=== PATIENT | male | born 1980 | race American Indian/Alaskan Native ===

== ENCOUNTER 2022-04-17 16:28 | Emergency (ER) | payer SELFPAY ==
[2022-04-17 18:02] LABS: Basophils % (Auto) 0.5 % (0.0-1.8); Eosinophils # (Auto) 0.1 K/mm3 (0.0-0.4); Eosinophils % (Auto) 0.8 % (0.0-4.3); Hematocrit 40.7 % (35.5-45.6); Lymphocytes # (Auto) 0.6 K/mm3 (1.2-5.4); Lymphocytes % (Auto) 8.9 % (13.4-35.0); Mean Corpuscular HGB Conc 32 % (32-34); Mean Corpuscular Volume 78 fl (84-94); Monocytes # (Auto) 0.6 K/mm3 (0.0-0.8); Monocytes % (Auto) 8.9 % (0.0-7.3); Platelet Count 157 K/mm3 (140-440); Red Blood Count 5.23 M/mm3 (3.65-5.03)
[2022-04-17 18:26] LABS: Alanine Aminotransferase 39 units/L (7-56); BUN/Creatinine Ratio 10; Blood Urea Nitrogen 12 mg/dL (9-20); Calcium 9.4 mg/dL (8.4-10.2); Hemolysis Index 32
[2022-04-18 04:16] LABS: Mucus,Urine FEW /HPF
[2022-04-18 04:40] LABS: Bilirubin,Urine NEG (Negative); Blood,Urine NEG (Negative); Color,Urine Straw (Yellow)
[2022-04-18 04:41] LABS: Urobilinogen,Urine < 2.0 mg/dL (<2.0)
[2022-04-18] MEDS ORDERED: SODIUM CHLORIDE 0.9% 1000 ML 1,000 ML ONE (07:51)
[2022-04-18] MEDS ORDERED: SODIUM CHLORIDE 0.9% 1000 ML 1,000 ML IV SCH ×3 (08:00→12:00)
[2022-04-18] MEDS ORDERED: SODIUM CHLORIDE 0.9% 100 ML IVPB IV SCH ×2 (08:00→12:00)
[2022-04-18] MEDS ORDERED: INSULIN REGULAR, HUMAN 100 UNITS/1 ML IV ONE (11:10)
--- NOTE | 2022-04-18 11:58 | Emergency Department Report ---
ED General Adult HPI - General Chief complaint: Hyperglycemia Stated complaint: HIGH SUGAR LEVEL PUI?: No Time Seen by Provider: 04/18/22 07:48 Source: patient Mode of arrival: Ambulatory Limitations: No Limitations - History of Present Illness Initial comments: This is a 41-year-old male with no medical history came in today with concerns of 2 to 3 weeks of extreme thirst and also polyuria. Patient also endorsed blurry vision which has since then resolved. patient denies any other symptoms. Patient denies fever chill night sweat dizziness lightheadedness headache tinnitus ear pain runny nose sore throat loss of taste loss of smell chest pain palpitation short breath cough abdominal pain nausea vomiting diarrhea consti pation joint pain muscle pain new rash and heat or cold intolerance. - Related Data Previous Rx's Medication Instructions Recorded Last Taken Type metFORMIN [Glucophage] 500 mg PO BID 30 Days #60 04/18/22 Unknown Rx Allergies Allergy/AdvReac Type Severity Reaction Status Date / Time No Known Allergies Allergy Verified 04/17/22 17:40 ED Review of Systems ROS: Stated complaint: HIGH SUGAR LEVEL Other details as noted in HPI Comment: All other systems reviewed and negative Constitutional: no symptoms reported Eyes: as per HPI ENT: as per HPI Respiratory: no symptoms reported Cardiovascular: as per HPI Endocrine: no symptoms reported, see HPI Gastrointestinal: as per HPI Genitourinary: as per HPI Musculoskeletal: as per HPI Skin: as per HPI Neurological: as per HPI Psychiatric: as per HPI Hematological/Lymphatic: as per HPI ED Past Medical Hx - Past Medical History Previous Medical History?: No - Surgical History Additional Surgical History: hemorrhoidectomy - Social History Smoking Status: Never Smoker - Medications Home Medications: Home Medications Medication Instructions Recorded Confirmed Last Taken Type metFORMIN [Glucophage] 500 mg PO BID 30 Days #60 04/18/22 Unknown Rx ED Physical Exam - General Limitations: No Limitations General appearance: alert, in no apparent distress - Head Head exam: Present: atraumatic, normocephalic, normal inspection - Eye Eye exam: Present: normal appearance, PERRL, EOMI Pupils: Present: normal accommodation - ENT ENT exam: Present: normal exam, normal orophraynx, mucous membranes dry - Neck Neck exam: Present: normal inspection, full ROM - Respiratory Respiratory exam: Present: normal lung sounds bilaterally - Cardiovascular Cardiovascular Exam: Present: regular rate, normal rhythm - GI/Abdominal GI/Abdominal exam: Present: soft - Extremities Exam Extremities exam: Present: normal inspection, full ROM, normal capillary refill - Back Exam Back exam: Present: normal inspection, full ROM - Neurological Exam Neurological exam: Present: alert, altered, oriented X3, CN II-XII intact, normal gait - Psychiatric Psychiatric exam: Present: normal affect, normal mood - Skin Skin exam: Present: warm ED Course Vital Signs 04/17/22 17:36 Temperature 97.9 F Pulse Rate 95 H Respiratory 20 Rate Blood Pressure 130/79 O2 Sat by Pulse 98 Oximetry ED Medical Decision Making - Lab Data Result diagrams: 04/17/22 17:50 04/17/22 17:50 Critical care attestation.: If time is entered above; I have spent that time in minutes in the direct care of this critically ill patient, excluding procedure time. ED Disposition Clinical Impression: Newly diagnosed diabetes Disposition: 01 HOME / SELF CARE / HOMELESS Is pt being admited?: No Does the pt Need Aspirin: No Condition: Stable Instructions: Diabetes Mellitus Type 2 in Adults (ED), Type 2 Diabetes Mellitu s, Diagnosis, Adult Additional Instructions: MAKE A FOLLOW UP APPOINTMENT WITH PRIMARY CARE PROVIDER OF YOUR CHOICE TO BE SEEN WITHIN 3 DAYS FOR FURTHER OUTPATIENT MANAGEMENT OF YOUR NEW DIABETES MELLITUS. Prescriptions: metFORMIN [Glucophage] 500 mg PO BID 30 Days #60 Referrals: PRIMARY CARE, [Primary Care Provider] - 3-5 Days Time of Disposition: 14:42
[2022-04-18 15:23] VITALS: BP 140/73
== END 2022-04-18 15:22 | disposition home or self-care (01) ==
LOC: EDSEX → ED 16:28
DX: E11.9 Type 2 diabetes mellitus without complications (principal); Z79.899 Other long term (current) drug therapy
CPT/HCPCS: 36415; 80053; 81001; 82962; 85025; 96361; 96374; 99283; J7030; Q9967; J1815